=== PATIENT | female | born 1995 | race Caucasian/White ===

== ENCOUNTER → 2020-11-13 10:37 | Outpatient (CLI) | payer OTHER, SELFPAY ==
[2020-11-13 10:07] VITALS: BMI 23.9
[2020-11-13 10:49] LABS: Absolute Lymphocyte Count 2.03 X10^3/uL (0.83-4.51); Absolute Neutrophil Count 4.3 X10^3/uL (2.0-7.7); Basophil# 0.06 X10^3/uL; Basophil% 0.8 % (0-1); Eosinophil# 0.11 X10^3/uL; Eosinophils% 1.6 % (0-5); Hematocrit 43.4 % (37-47); Hemoglobin 14.6 g/dL (12.0-15.0); Lymphocyte # 2.03 X10^3/ul (0.83-4.51); Lymphocyte % 28.7 % (19-41); Mean Corp Hgb Conc 33.6 g/dL (32-36); Mean Corpuscular Volume 92.1 fL (81-99); Mean Platelet Vol. 10.6 fl (6.2-12.0); Monocyte# 0.57 X10^3/uL; Monocyte% 8.1 % (0-10); NRBC Flagged by Analyzer 0 % (0-5); Neutrophil # 4.28 X10^3/uL (2.7-7.7); Neutrophil % 60.4 % (47-70); Platelet Count 196 K/mm3 (150-450); RBC Distribution Width CV 12.3 % (11.6-14.6); RBC Distribution Width SD 41.8 fl (35.1-43.9); Red Blood Count 4.71 M/mm3 (4.2-5.4); White Blood Count 7.1 K/mm3 (4.4-11.0)
[2020-11-13 11:22] LABS: Thyroid Stim Hormone (TSH) 1.18 uIU/mL (0.358-3.74)
[2020-11-17 07:06] LABS: Chlamydia By Nucleic Acid AMP Negative (Negative)
[2020-11-17 07:50] LABS: Gonococcus By Nucleic Acid AMP Negative (Negative)
[2020-11-18 12:39] LABS: HPV Reflexed? NOT INDICATED
== END ==
PROVIDERS: PCP Internal Medicine; Referring Provider Nurse Practitioner Women's Health; Visit Provider Nurse Practitioner Women's Health
DX: Z12.4 Encounter for screening for malignant neoplasm of cervix (principal); R53.83 Other fatigue; Z11.3 Encounter for screening for infections with a predominantly sexual mode of transmission; Z13.29 Encounter for screening for other suspected endocrine disorder
CPT/HCPCS: 36415; 84443; 85025; 87491; 87591; 88175; G0145

== ENCOUNTER → 2022-01-12 | Outpatient (CLI) | payer OTHER, SELFPAY ==
[2022-01-12 14:37] LABS: Absolute Lymphocyte Count 1.71 X10^3/uL (0.83-4.51); Absolute Neutrophil Count 4.8 X10^3/uL (2.0-7.7); Basophil# 0.07 X10^3/uL; Eosinophils% 1.4 % (0-5); Hematocrit 39.8 % (37-47); Hemoglobin 13.9 g/dL (12.0-15.0); Lymphocyte # 1.71 X10^3/ul (0.83-4.51); Lymphocyte % 23.8 % (19-41); Mean Corp Hgb Conc 34.9 g/dL (32-36); Mean Corpuscular Hgb 31.4 pg (27.0-32.0); Mean Platelet Vol. 11.5 fl (6.2-12.0); Monocyte% 6.9 % (0-10); NRBC Flagged by Analyzer 0 % (0-5); Neutrophil # 4.81 X10^3/uL (2.7-7.7); Neutrophil % 66.8 % (47-70); Platelet Count 165 K/mm3 (150-450); RBC Distribution Width CV 11.6 % (11.6-14.6); RBC Distribution Width SD 38.5 fl (35.1-43.9); Red Blood Count 4.42 M/mm3 (4.2-5.4); White Blood Count 7.2 K/mm3 (4.4-11.0)
[2022-01-12 14:51] LABS: Hemoglobin A1c 5.1 % (3.8-5.6)
[2022-01-12 15:21] LABS: Vitamin D,25 Hydroxy 48.5 ng/mL
[2022-01-12 15:31] LABS: Thyroid Stim Hormone (TSH) 1.27 uIU/mL (0.358-3.74)
== END | disposition home or self-care (01) ==
PROVIDERS: PCP Internal Medicine; Referring Provider Nurse Practitioner Women's Health; Visit Provider Nurse Practitioner Women's Health
DX: R53.83 Other fatigue (principal); R42 Dizziness and giddiness; Z13.21 Encounter for screening for nutritional disorder
CPT/HCPCS: 36415; 82306; 83036; 84443; 85025

== ENCOUNTER → 2022-05-13 | Outpatient (CLI) | payer OTHER, SELFPAY ==
--- NOTE | 2022-05-13 14:56 | US_ITS ---
STUDY: ULTRASOUND OF THE FEMALE PELVIS - COMPLETE REASON FOR EXAM: Female, 26 years old. Pelvic pain -right side LMP: 05/03/2020 TECHNIQUE: Transabdominal and Transvaginal TECHNICAL QUALITY: Adequate. COMPARISON: None. FINDINGS: The uterus is anteverted and is in a midline position. The uterus measures 9.9 x 6.7 x 4.2 cm. Normal uterine cervix. The endometrium measures 9 mm in thickness, and is heterogeneous (striated). There is no demonstrated endometrial mass. There is no demonstrated myometrial mass. I.U.D. - The patient does not have an I.U.D. The right ovary is visualized. The right ovary measures 3.2 x 3.2 x 2.3 cm. There is a simple 2.3 cm cyst.. There is normal arterial and normal venous vascularity. The left ovary is visualized. The left ovary measures 2.1 x 1.7 x 2.2 cm. There is no left ovarian cyst or ovarian mass. There is no visualized left adnexal mass or complex lesion. There is normal arterial and normal venous vascularity. There is minimal fluid in the cul-de-sac, likely physiologic. The pre void volume of the bladder was 106 ml. The post void volume of the bladder was less than 10 ml. US/Transvaginal Non- IMPRESSION: No suspicious sonographic findings, simple right ovarian cyst and minimal free fluid in the cul-de-sac are likely physiologic and need no specific follow-up. Electronically Signed: Pravin Gillespie MD at 15:51 EDT ,
--- NOTE | 2022-05-13 14:56 | US_ITS ---
STUDY: ULTRASOUND OF THE FEMALE PELVIS - COMPLETE REASON FOR EXAM: Female, 26 years old. Pelvic pain -right side LMP: 05/03/2020 TECHNIQUE: Transabdominal and Transvaginal TECHNICAL QUALITY: Adequate. COMPARISON: None. FINDINGS: The uterus is anteverted and is in a midline position. The uterus measures 9.9 x 6.7 x 4.2 cm. Normal uterine cervix. The endometrium measures 9 mm in thickness, and is heterogeneous (striated). There is no demonstrated endometrial mass. There is no demonstrated myometrial mass. I.U.D. - The patient does not have an I.U.D. The right ovary is visualized. The right ovary measures 3.2 x 3.2 x 2.3 cm. There is a simple 2.3 cm cyst.. There is normal arterial and normal venous vascularity. The left ovary is visualized. The left ovary measures 2.1 x 1.7 x 2.2 cm. There is no left ovarian cyst or ovarian mass. There is no visualized left adnexal mass or complex lesion. There is normal arterial and normal venous vascularity. There is minimal fluid in the cul-de-sac, likely physiologic. The pre void volume of the bladder was 106 ml. The post void volume of the bladder was less than 10 ml. US/Pelvic (Non ) IMPRESSION: No suspicious sonographic findings, simple right ovarian cyst and minimal free fluid in the cul-de-sac are likely physiologic and need no specific follow-up. Electronically Signed: Pravin Gillespie MD at 15:51 EDT ,
== END | disposition home or self-care (01) ==
LOC: US 14:54
PROVIDERS: Referring Provider Obstetrics & Gynecology; Visit Provider Obstetrics & Gynecology
DX: R10.2 Pelvic and perineal pain (principal)
CPT/HCPCS: 76830; 76856; 93976

== ENCOUNTER → 2022-05-28 | Outpatient (CLI) | payer OTHER, SELFPAY ==
[2022-06-04 15:19] LABS: HPV Reflexed? NOT INDICATED
== END | disposition home or self-care (01) ==
LOC: LABSPEC 16:31
PROVIDERS: Visit Provider Registered Nurse
DX: Z12.4 Encounter for screening for malignant neoplasm of cervix (principal)
CPT/HCPCS: 88175; G0145

== ENCOUNTER → 2022-10-26 | Outpatient (CLI) | payer OTHER, SELFPAY ==
[2022-10-26 16:10] LABS: Absolute Lymphocyte Count 1.63 X10^3/uL (0.83-4.51); Absolute Neutrophil Count 5.3 X10^3/uL (2.0-7.7); Basophil# 0.05 X10^3/uL; Basophil% 0.7 % (0-1); Eosinophil# 0.09 X10^3/uL; Eosinophils% 1.2 % (0-5); Hematocrit 35.8 % (37-47); Hemoglobin 12.6 g/dL (12.0-15.0); Lymphocyte # 1.63 X10^3/ul (0.83-4.51); Lymphocyte % 21.3 % (19-41); Mean Corp Hgb Conc 35.2 g/dL (32-36); Mean Corpuscular Hgb 31.4 pg (27.0-32.0); Mean Corpuscular Volume 89.3 fL (81-99); Mean Platelet Vol. 11.1 fl (6.2-12.0); Monocyte# 0.52 X10^3/uL; Monocyte% 6.8 % (0-10); NRBC Flagged by Analyzer 0 % (0-5); Neutrophil # 5.34 X10^3/uL (2.7-7.7); Neutrophil % 69.9 % (47-70); Platelet Count 175 K/mm3 (150-450); RBC Distribution Width CV 12.3 % (11.6-14.6); RBC Distribution Width SD 40.7 fl (35.1-43.9); Red Blood Count 4.01 M/mm3 (4.2-5.4); White Blood Count 7.6 K/mm3 (4.4-11.0)
[2022-10-26 16:56] LABS: ALB/GLOB Ratio 1.3 RATIO (0.9-2.4); AST(SGOT) 13 U/L (15-37); Alanine Aminotransfer ALT/SGPT 20 U/L (13-56); Alkaline Phosphatase 44 U/L (45-117); Anion Gap 7 (5-15); BUN 11 mg/dL (7-18); BUN/Creat Ratio 19.9 RATIO (10-20); Chloride 108 mmol/L (98-107); Creatinine, Serum 0.55 mg/dL (0.55-1.02); EST Glomerular Filtration Rate 138 mL/min (>60); Est Glom Filt Rate - Afr Amer 167 mL/min (>60); Glucose 88 mg/dL (74-106); Potassium 3.5 mmol/L (3.5-5.1); Sodium Level 137 mmol/L (136-145)
[2022-10-26 17:53] LABS: HIV - WCH Non-Reactive (Nonreactive); Hepatitis B Surface Antigen Non-Reactive (Nonreactive); Hepatitis C Antibody Non-Reactive (Nonreactive); Rubella IgG Reactive (Nonreactive); Syphilis Antibodies Non-reactive
[2022-10-28 16:09] LABS: Endomysial Antibody IgA Negative (Negative)
[2022-10-28 17:02] LABS: Deamidated Gliadin IgA 3 units (0-19); Deamidated Gliadin IgG 4 units (0-19); Immunoglobulin A 51 mg/dL (87-352); t-Transglutaminase IgA <2 U/mL (0-3)
[2022-10-28 22:06] LABS: Chlamydia By Nucleic Acid AMP Negative (Negative)
[2022-10-29 15:19] LABS: Gonococcus By Nucleic Acid AMP Negative (Negative)
[2022-10-31 12:07] LABS: Beef <0.10 kU/L (Class 0); Corn <0.10 kU/L (Class 0); Egg, Whole <0.10 kU/L (Class 0); Milk (Cow) <0.10 kU/L (Class 0); Peanut <0.10 kU/L (Class 0); Pork <0.10 kU/L (Class 0); Soybean <0.10 kU/L (Class 0); Wheat <0.10 kU/L (Class 0)
[2022-11-01 11:11] LABS: Chocolate <0.10 kU/L (Class 0)
== END | disposition home or self-care (01) ==
PROVIDERS: Family Medicine; Referring Provider Obstetrics & Gynecology; Visit Provider Obstetrics & Gynecology
DX: Z34.90 Encounter for supervision of normal pregnancy, unspecified, unspecified trimester (principal); Z91.018 Allergy to other foods
CPT/HCPCS: 36415; 80053; 82784; 83516; 85025; 86003; 86005; 86255; 86703; 86762; 86780; 86803; 86850; 86900; 86901; 87086; 87340; 87491; 87591

== ENCOUNTER → 2023-01-04 | Outpatient (CLI) | payer OTHER, SELFPAY ==
--- NOTE | 2023-01-04 15:51 | US_ITS ---
INDICATION: ANATOMY EXAMINATION: Ultrasound US OB complete with detail single or first gestation. Ultrasound OB transvaginal TECHNIQUE: Transabdominal pelvic ultrasound was performed with grayscale, color flow, and M-mode Doppler. Additional transvaginal grayscale and color flow imaging of the cervix and bilateral maternal adnexa.. COMPARISON: May 13, 2022. LMP: August 23, 2022 correlating with 19 weeks 1 day and estimated delivery date May 30, 2023. FINDINGS: Gravid uterus with unremarkable myometrium. Variable position. heart rate 144 bpm. Cervix partially obscured on transabdominal exam, 4.3 cm in length and closed on transvaginal exam. Subjectively normal amniotic fluid. Deepest vertical pocket 3.1 cm. Placenta posterior, grade 0 without evidence of abruption. Inferior marginal placenta 3.1 cm from the internal os. Normal cerebellum, cisterna magnum and lateral ventricles. 2.7 mm solitary choroid plexus. Four-chamber heart. Normal abdominal and placental cord insertion. Kidneys present without pelviectasis. Normal spine and skin line. Filled stomach. Diaphragm appears intact. 2 lower extremities. 2 upper extremities. Filled bladder. Three-vessel cord. Limited nose and lips images with no abnormality along imaged portion. MATERNAL OVARIES: Obscured by bowel gas on transabdominal and endovaginal exam. FREE FLUID: Trace anechoic dependent cul-de-sac free fluid. Biparietal diameter 4.1 cm 18 weeks 3 days Head circumference 17.0 cm 19 weeks 4 days Abdominal circumference 14.8 cm 20 weeks 0 days Femur length 2.7 cm 18 weeks 1 day Composite ultrasound age 19 weeks 0 days correlating with May 31, 2023 delivery date. Estimated weight 276g + or minus 41g. This is 44th percentile compared to prior dating. Normal head circumference abdominal circumference ratio. IMPRESSION: Single live intrauterine with normal heart rate. Estimated gestational age by biometry is concordant with provided dating. 2.7 mm solitary choroid plexus cyst. This is of unknown clinical significance as an isolated finding is typically self-limiting. There is a soft association with aneuploidy. OB follow-up is recommended. Consider repeat ultrasound at 28 weeks gestation. Cervix long and closed. Unremarkable placenta. Trace nonspecific anechoic cul-de-sac free fluid. Maternal ovaries are obscured by bowel gas Electronically Signed: Kam Thorpe MD at 8:45 EDT , INDICATION: ANATOMY EXAMINATION: Ultrasound US OB complete with detail single or first gestation. Ultrasound OB transvaginal TECHNIQUE: Transabdominal pelvic ultrasound was performed with grayscale, color flow, and M-mode Doppler. Additional transvaginal grayscale and color flow imaging of the cervix and bilateral maternal adnexa.. COMPARISON: May 13, 2022. LMP: August 23, 2022 correlating with 19 weeks 1 day and estimated delivery date May 30, 2023. FINDINGS: Gravid uterus with unremarkable myometrium. Variable position. heart rate 144 bpm. Cervix partially obscured on transabdominal exam, 4.3 cm in length and closed on transvaginal exam. Subjectively normal amniotic fluid. Deepest vertical pocket 3.1 cm. Placenta posterior, grade 0 without evidence of abruption. Inferior marginal placenta 3.1 cm from the internal os. Normal cerebellum, cisterna magnum and lateral ventricles. 2.7 mm solitary choroid plexus. Four-chamber heart. Normal abdominal and placental cord insertion. Kidneys present without pelviectasis. Normal spine and skin line. Filled stomach. Diaphragm appears intact. 2 lower extremities. 2 upper extremities. Filled bladder. Three-vessel cord. Limited nose and lips images with no abnormality along imaged portion. MATERNAL OVARIES: Obscured by bowel gas on transabdominal and endovaginal exam. FREE FLUID: Trace anechoic dependent cul-de-sac free fluid. Biparietal diameter 4.1 cm 18 weeks 3 days Head circumference 17.0 cm 19 weeks 4 days Abdominal circumference 14.8 cm 20 weeks 0 days Femur length 2.7 cm 18 weeks 1 day Composite ultrasound age 19 weeks 0 days correlating with May 31, 2023 delivery date. Estimated weight 276g + or minus 41g. This is 44th percentile compared to prior dating. Normal head circumference abdominal circumference ratio. US/OB Anatomy Scan
== END | disposition home or self-care (01) ==
LOC: OPUS 15:51 → US 15:52
PROVIDERS: PCP Family Medicine; Referring Provider Registered Nurse; Visit Provider Registered Nurse
DX: Z34.90 Encounter for supervision of normal pregnancy, unspecified, unspecified trimester (principal)
CPT/HCPCS: 76805; 76817

== ENCOUNTER → 2023-01-18 | Outpatient (CLI) | payer OTHER, SELFPAY ==
[2023-01-18 15:54] LABS: NATERA MAILED SPECIMEN
== END | disposition home or self-care (01) ==
LOC: PAVLAB 14:47
PROVIDERS: PCP Family Medicine; Referring Provider Advanced Practice Midwife; Visit Provider Advanced Practice Midwife
DX: Z00.00 Encounter for general adult medical examination without abnormal findings (principal)

== ENCOUNTER → 2023-03-07 | Outpatient (CLI) | payer OTHER, SELFPAY ==
[2023-03-07 13:23] LABS: Absolute Lymphocyte Count 1.33 X10^3/uL (0.83-4.51); Absolute Neutrophil Count 6.7 X10^3/uL (2.0-7.7); Basophil# 0.05 X10^3/uL; Basophil% 0.6 % (0-1); Eosinophil# 0.08 X10^3/uL; Eosinophils% 0.9 % (0-5); Hematocrit 36.3 % (37-47); Hemoglobin 12.4 g/dL (12.0-15.0); Lymphocyte # 1.33 X10^3/ul (0.83-4.51); Lymphocyte % 15.1 % (19-41); Mean Corp Hgb Conc 34.2 g/dL (32-36); Mean Corpuscular Hgb 32.3 pg (27.0-32.0); Mean Corpuscular Volume 94.5 fL (81-99); Mean Platelet Vol. 10.9 fl (6.2-12.0); Monocyte# 0.58 X10^3/uL; Monocyte% 6.6 % (0-10); NRBC Flagged by Analyzer 0 % (0-5); Neutrophil # 6.69 X10^3/uL (2.7-7.7); Neutrophil % 76.1 % (47-70); Platelet Count 164 K/mm3 (150-450); RBC Distribution Width CV 12.2 % (11.6-14.6); RBC Distribution Width SD 42.2 fl (35.1-43.9); Red Blood Count 3.84 M/mm3 (4.2-5.4); White Blood Count 8.8 K/mm3 (4.4-11.0)
[2023-03-07 13:47] LABS: Glucose Challenge Gest 1H 50g 89 mg/dL (70-140)
[2023-03-07 14:20] LABS: HIV - WCH Non-Reactive (Nonreactive); Syphilis Antibodies Non-reactive
== END | disposition home or self-care (01) ==
LOC: PAVLAB 13:07
PROVIDERS: PCP Family Medicine; Referring Provider Advanced Practice Midwife; Visit Provider Advanced Practice Midwife
DX: Z34.90 Encounter for supervision of normal pregnancy, unspecified, unspecified trimester (principal)
CPT/HCPCS: 36415; 82950; 85025; 86703; 86780

== ENCOUNTER → 2023-05-03 | Outpatient (CLI) | payer OTHER, SELFPAY | END | disposition home or self-care (01) | LOC: LABSPEC 12:15 | PROVIDERS: PCP Family Medicine; Referring Provider Obstetrics & Gynecology; Visit Provider Obstetrics & Gynecology | DX: Z34.90 Encounter for supervision of normal pregnancy, unspecified, unspecified trimester (principal) | CPT/HCPCS: 87081 ==

== ENCOUNTER 2023-05-30 19:40 | Inpatient (IN) | payer OTHER, SELFPAY ==
[2023-05-30] VITALS (50 sets, daily range): BP systolic 89–144; BP diastolic 50–75; PULSE 61–95; TEMP 36.4–36.9; O2SAT 77–100; BMI 29.0
[2023-05-30 20:13] LABS: Absolute Lymphocyte Count 1.43 X10^3/uL (0.83-4.51); Absolute Neutrophil Count 15.4 X10^3/uL (2.0-7.7); Basophil# 0.07 X10^3/uL; Basophil% 0.4 % (0-1); Eosinophil# 0.01 X10^3/uL; Eosinophils% 0.1 % (0-5); Hematocrit 39.3 % (37-47); Hemoglobin 13.6 g/dL (12.0-15.0); Lymphocyte # 1.43 X10^3/ul (0.83-4.51); Mean Corp Hgb Conc 34.6 g/dL (32-36); Mean Corpuscular Hgb 31.4 pg (27.0-32.0); Mean Corpuscular Volume 90.8 fL (81-99); Mean Platelet Vol. 12.2 fl (6.2-12.0); Monocyte# 0.94 X10^3/uL; Monocyte% 5.2 % (0-10); NRBC Flagged by Analyzer 0 % (0-5); Neutrophil # 15.35 X10^3/uL (2.7-7.7); Neutrophil % 85.6 % (47-70); Platelet Count 178 K/mm3 (150-450); RBC Distribution Width CV 12.5 % (11.6-14.6); Red Blood Count 4.33 M/mm3 (4.2-5.4); White Blood Count 17.9 K/mm3 (4.4-11.0)
[2023-05-30 20:52] LABS: Syphilis Antibodies Non-reactive
[2023-05-30] MEDS: LACTATED RINGERS 500 ML 999 ML IV ×2 (20:55→21:58)
[2023-05-30] MEDS: Lactated Ringers 1,000 ML 200 ML IV (20:58)
[2023-05-30] MEDS: fentaNYL-bupivacaine (epidural) 100 ML BAG EPIDURAL (21:21)
--- NOTE | 2023-05-30 22:39 | HP.PCM.OB_ITS ---
HPI - General General Date of Admission: 05/30/23 Date of Service: 05/30/23 HPI Narrative TREVOR JOHNSON, is a 27 F who presents with LOF since around 0930 this morning, clear fluids. contractions started spontaneously. no vaginal bleeding. active fetus. GBS negative. Maternal Data Information RABIA Calculator Estimated Delivery Date Method Current WG Current Estimate 05/30/23 LMP (Certain) 40w 0d Other Estimates 05/31/23 Ultrasound #1 39w 6d PFSH PFSH Medical History Dysmenorrhea Fatigue Pelvic pain Sinus infection Home Medications docosahexaenoic acid 200 mg capsule ( DHA) mg PO 01/12/22 [History Last Taken 05/30/23] Allergy/AdvReac Type Severity Reaction Status Date / Time No Known Allergies Allergy Verified 05/30/23 21:50 Family History Aunt MTHFR gene mutation Grandfather Cancer Uncle Heart disease VSD repaired at 6months, revision at 18 years intellectual disability Unknown Heart disease tricuspid valve dysplasia Surgical History S/P tonsillectomy and adenoidectomy [place] teeth extracted Social History adopted: No household members: significant other housing: house current occupational status: employed current occupation: [employer] pets and animals: Yes pets and animals: cat(s) and dog(s) history of recent travel: Yes sexually active: Yes Smoking Status: Never smoker alcohol intake: never substance use type: does not use well-balanced diet: daily or most days caffeine: No seatbelt use: always do you feel safe at home: Yes additional social history: [place] History 1 Elective abortions Hx Para 0 Spontaneous abortions Hx # Term Pregnancies Ectopic pregnancies Hx # Pregnancies Multiple births # of living children Visit Details Expected Delivery Route/Plan Labor Preferences- CB/BF classes: discussed labor support person: Farhat labor intervention preferences: min intervention pain management options preferred:natural cut cord/dad catch: yes maybe : plans PP control planned: [] discussed possible routes of delivery and associated risks: [] special requests: [] Plans Covid status: discussed Flu vaccine:discussed Tdap vaccine: given Rhogam: na LARC form signed: declined movement and labor precautions reviewed. Problem list reviewed and updated with the most current plan of care details and appropriate orders placed. Relevant counseling for the gestational age provided. Continue routine care and follow up unless otherwise noted in visit notes/problem list details OB Flowsheet Initial Weight: Not Recorded Date -?-?-?-?-?-?-?-?-?-?-?-?- EGA Weight BP Urine Prot -?-?-?-?-?-?-?-?-?-?-?-?- Glucose FHR FuHt Pres Dilation -?-?-?-?-?-?-?-?-?-?-?-?- Effaced St Visit Note 10/26/22 -?-?-?-?-?-?-?-?-?-?-?-?- 9w 1d 138 lb 8 oz 120/74 -?-?-?-?-?-?-?-?-?-?-?-?- 160 -?-?-?-?-?-?-?-?-?-?-?-?- SM- CRL 2cm cons with LMP 11/22/22 -?-?-?-?-?-?-?-?-?-?-?-?- 13w 0d 142 lb 2 oz 102/72 Nega tive -?-?-?-?-?-?-?--?-?-?-?-?- Negative 144 -?-?-?-?-?-?-?-?-?-?-?-?- LC- no cramping/ vb. cardiac defects in family, would like to declines nipt. ultrasound ordered. open to echo if needed. 12/22/22 -?-?-?-?-?-?-?-?-?-?-?-?- 17w 2d 146 lb 6 oz 115/73 Nega tive -?-?-?-?-?-?-?-?-?-?-?-?- Negative 147 -?-?-?-?-?-?-?-?-?-?--?-?- JV- no complaint s today. has [facility] ultrasound scheduled for 01/0401/18/23 -?-?-?-?-?-?-?-?-?-?-?-?- 21w 1d 153 lb 4 oz 100/67 Nega tive -?-?-?--?-?-?-?-?-?-?-?-?- Negative 145 22 -?-?-?-?-?-?-?-?-?-?-?-?- KW-+FM, no lof/v b/ctx. NIPT today. plans 28 week US. 28 week labs with Fresh test 02/15/23 -?-?-?-?-?-?-?-?-?-?-?-?- 25w 1d 159 lb 2 oz 105/69 Nega tive -?-?-?-?-?-?-?-?-?-?-?-?- Negative 135 25 -?-?-?-?-?-?-?-?-?-?-?-?- KW-+fm. no lof/v b/ctx. no concerns KW-+fm. no lof/vb/ctx. no co ncerns. NIPT low risk. declines 28 week US 03/07/23 -?-?-?-?-?-?-?-?-?-?-?-?- 28w 0d 164 lb 6 oz 105/70 -?-?-?-?-?-?-?-?-?-?-?-?- 150 28 -?-?-?-?-?-?-?-?-?-?-?-?- KW-+fm. no lof/v b/ctx. no concerns. 03/21/23 -?-?-?-?-?-?-?-?-?-?-?-?- 30w 0d 168 lb 2 oz 116/76 Nega tive -?-?-?-?-?-?-?-?-?-?-?-?- Negative 140 30 -?-?-?-?-?-?-?-?-?-?-?-?- LC- no lof/vb/ct x. passed glucose. LC- no lof/vb/ctx. passed gl ucose.CBE discussed. 04/06/23 -?-?-?-?-?-?-?-?-?-?-?-?- 32w 2d 173 lb 6 oz 102/67 -?-?-?-?-?-?-?-?-?-?-?-?- 137 32 -?-?-?-?-?-?-?-?-?-?-?-?- JV- larc signed, willl decide about tdap. no lof, vaginal bleeding, or dec fm, no contractions 04/18/23 -?-?-?-?-?-?-?-?-?-?-?-?- 34w 0d 173 lb 6 oz 105/67 Nega tive -?-?-?-?-?-?-?-?-?-?-?-?- Negative 125 34 [place] -?-?-?-?-?-?-?-?-?-?-?-?- SM- no vb lof go od fm n oregular ctx discussed breech presentation 05/03/23 -?-?-?-?-?-?-?-?-?-?-?-?- 36w 1d 180 lb 110/70 -?-?-?-?-?-?-?-?-?-?-?-?- 140 36 Cephalic 0 -?-?-?-?-?-?-?-?-?-?-?-?- SM- scanned [facility] no vb lof good fm n oreuglar ctx gbs done 05/09/23 -?-?-?-?-?-?-?-?-?-?-?-?- 37w 0d 182 lb 114/70 Negative -?-?-?-?-?-?-?-?-?-?-?--?- Negative 140 37 Cephalic -?-?-?-?-?-?-?-?-?-?-?-?- SM- no vb lof go od fm no regular ctx 05/18/23 -?-?-?-?-?-?-?-?-?-?-?-?- 38w 2d 180 lb 4 oz 116/76 Nega tive -?-?-?-?-?-?-?-?-?-?-?-?- Negative 145 38 Cephalic -?-?-?-?-?-?-?-?-?-?-?-?- JV- declines PE, no lof, vaginal bleeding, or dec fm. 05/24/23 -?-?-?-?-?-?-?-?-?-?-?-?- 39w 1d 183 lb 6 oz 120/75 Nega tive -?-?-?-?-?-?-?-?-?-?-?-?- Negative 125 39 Cephalic 0 .5 -?-?-?-?-?-?-?-?-?-?-?-?- KW-no vb/lof/reg ular ctx. good fm. labor precautions NST FHR Rate Baby A Baseline: 120 Variability:: Moderate Accelerations:: 15 x 15 Decelerations:: Variable NST Reactive:: Yes FHR Category:: Category I and Category II (resolved to cat 1 tracing with position changes and fluid bolus after epidural placement. ) Uterine Activity:: q3-4
--- NOTE | 2023-05-30 22:39 | PCM.HP.OB ---
HPI - General General Date of Admission: 05/30/23 Date of Service: 05/30/23 HPI Narrative TREVOR JOHNSON, is a 27 F who presents with LOF since around 0930 this morning, clear fluids. contractions started spontaneously. no vaginal bleeding. active fetus. GBS negative. Maternal Data Information RABIA Calculator Estimated Delivery Date Method Current WG Current Estimate 05/30/23 LMP (Certain) 40w 0d Other Estimates 05/31/23 Ultrasound #1 39w 6d PFSH PFSH Medical History Dysmenorrhea Fatigue Pelvic pain Sinus infection Home Medications docosahexaenoic acid 200 mg capsule ( DHA) mg PO 01/12/22 [History Last Taken 05/30/23] Allergy/AdvReac Type Severity Reaction Status Date / Time No Known Allergies Allergy Verified 05/30/23 21:50 Family History Aunt MTHFR gene mutation Grandfather Cancer Uncle Heart disease VSD repaired at 6months, revision at 18 years intellectual disability Unknown Heart disease tricuspid valve dysplasia Surgical History S/P tonsillectomy and adenoidectomy [place] teeth extracted Social History adopted: No household members: significant other housing: house current occupational status: employed current occupation: [employer] pets and animals: Yes pets and animals: cat(s) and dog(s) history of recent travel: Yes sexually active: Yes Smoking Status: Never smoker alcohol intake: never substance use type: does not use well-balanced diet: daily or most days caffeine: No seatbelt use: always do you feel safe at home: Yes additional social history: [place] History 1 Elective abortions Hx Para 0 Spontaneous abortions Hx # Term Pregnancies Ectopic pregnancies Hx # Pregnancies Multiple births # of living children Visit Details Expected Delivery Route/Plan Labor Preferences- CB/BF classes: discussed labor support person: Farhat labor intervention preferences: min intervention pain management options preferred:natural cut cord/dad catch: yes maybe : plans PP control planned: [] discussed possible routes of delivery and associated risks: [] special requests: [] Plans Covid status: discussed Flu vaccine:discussed Tdap vaccine: given Rhogam: na LARC form signed: declined movement and labor precautions reviewed. Problem list reviewed and updated with the most current plan of care details and appropriate orders placed. Relevant counseling for the gestational age provided. Continue routine care and follow up unless otherwise noted in visit notes/problem list details OB Flowsheet Initial Weight: Not Recorded Date <del>?</del> EGA Weight BP Urine Prot <del>?</del> Glucose FHR FuHt Pres Dilation <del>?</del> Effaced St Visit Note 10/26/22 <del>?</del> 9w 1d 138 lb 8 oz 120/74 <del>?</del> 160 <del>?</del> SM- CRL 2cm cons with LMP 11/22/22 <del>?</del> 13w 0d 142 lb 2 oz 102/72 Negative <del>?</del> Negative 144 <del>?</del> LC- no cramping/vb. cardiac defects in family, would like to declines nipt. ultrasound ordered. open to echo if needed. 12/22/22 <del>?</del> 17w 2d 146 lb 6 oz 115/73 Negative <del>?</del> Negative 147 <del>?</del> JV- no complaints today. has [facility] ultrasound scheduled for 01/0401/18/23 <del>?</del> 21w 1d 153 lb 4 oz 100/67 Negative <del>?</del> Negative 145 22 <del>?</del> KW-+FM, no lof/vb/ctx. NIPT today. plans 28 week US. 28 week labs with Fresh test 02/15/23 <del>?</del> 25w 1d 159 lb 2 oz 105/69 Negative <del>?</del> Negative 135 25 <del>?</del> KW-+fm. no lof/vb/ctx. no concerns KW-+fm. no lof/vb/ctx. no concerns. NIPT low risk. declines 28 week US 03/07/23 <del>?</del> 28w 0d 164 lb 6 oz 105/70 <del>?</del> 150 28 <del>?</del> KW-+fm. no lof/vb/ctx. no concerns. 03/21/23 <del>?</del> 30w 0d 168 lb 2 oz 116/76 Negative <del>?</del> Negative 140 30 <del>?</del> LC- no lof/vb/ctx. passed glucose. LC- no lof/vb/ctx. passed glucose.CBE discussed. 04/06/23 <del>?</del> 32w 2d 173 lb 6 oz 102/67 <del>?</del> 137 32 <del>?</del> JV- larc signed, willl decide about tdap. no lof, vaginal bleeding, or dec fm, no contractions 04/18/23 <del>?</del> 34w 0d 173 lb 6 oz 105/67 Negative <del>?</del> Negative 125 34 Breech <del>?</del> SM- no vb lof good fm n oregular ctx discussed breech presentation 05/03/23 <del>?</del> 36w 1d 180 lb 110/70 <del>?</del> 140 36 Cephalic 0 <del>?</del> SM- scanned at bedside no vb lof good fm n oreuglar ctx gbs done 05/09/23 <del>?</del> 37w 0d 182 lb 114/70 Negative <del>?</del> Negative 140 37 Cephalic <del>?</del> SM- no vb lof good fm no regular ctx 05/18/23 <del>?</del> 38w 2d 180 lb 4 oz 116/76 Negative <del>?</del> Negative 145 38 Cephalic <del>?</del> JV- declines PE, no lof, vaginal bleeding, or dec fm. 05/24/23 <del>?</del> 39w 1d 183 lb 6 oz 120/75 Negative <del>?</del> Negative 125 39 Cephalic 0.5 <del>?</del> KW-no vb/lof/regular ctx. good fm. labor precautions NST FHR Rate Baby A Baseline: 120 Variability:: Moderate Accelerations:: 15 x 15 Decelerations:: Variable NST Reactive:: Yes FHR Category:: Category I and Category II (resolved to cat 1 tracing with position changes and fluid bolus after epidural placement. ) Uterine Activity:: q3-4 ROS Cardiovascular Cardiovascular: Denies abdominal pain, chest pain, diaphoresis or dyspnea Respiratory/Chest Respiratory/Chest: Denies change in mental status, chest congestion, chest tightness, cough, shortness of breath at rest, shortness of breath with exertion, breast mass, breast pain, breast skin changes, breast swelling, change in breast shape or nipple discharge Genitourinary Genitourinary: Reports change in urinary stream Musculoskeletal Musculoskeletal: Reports none Integumentary Integumentary: Reports none Neurologic Neurologic: Reports none Psychiatric Psychiatric: Reports none Endocrine Endocrinology: Reports none Hematologic/Lymphatic Hematologic/Lymphatic: Reports none Allergic/Immunologic Allergic/Immunologic: Reports none Vital Signs Vital Signs Vital Signs: 05/30/23 19:58 05/30/23 19:58 05/30/23 20:00 Temperature Temperature Source Pulse Rate 76 Blood Pressure 123/71 H BP Systolic 123 BP Diastolic 71 Pulse Ox 99 05/30/23 20:03 05/30/23 20:03 05/30/23 21:10 Temperature 98.2 F Temperature Source Temporal Pulse Rate 86 Blood Pressure BP Systolic BP Diastolic Pulse Ox 05/30/23 21:10 05/30/23 21:15 05/30/23 21:15 Temperature Temperature Source Pulse Rate 85 Blood Pressure BP Systolic BP Diastolic Pulse Ox 99 98 05/30/23 21:15 05/30/23 21:15 05/30/23 21:15 Temperature Temperature Source Pulse Rate 76 Blood Pressure 109/65 BP Systolic 109 BP Diastolic 65 Pulse Ox 94 05/30/23 21:20 05/30/23 21:20 05/30/23 21:21 Temperature Temperature Source Pulse Rate 87 Blood Pressure 125/66 H BP Systolic 125 BP Diastolic 66 Pulse Ox 97 05/30/23 21:21 05/30/23 21:23 05/30/23 21:23 Temperature 98.5 F Temperature Source Temporal Pulse Rate 81 Blood Pressure BP Systolic BP Diastolic Pulse Ox 05/30/23 21:25 05/30/23 21:25 05/30/23 21:29 Temperature Temperature Source Pulse Rate 81 Blood Pressure 125/68 H BP Systolic 125 BP Diastolic 68 Pulse Ox 99 05/30/23 21:30 05/30/23 21:30 05/30/23 21:35 Temperature Temperature Source Pulse Rate 82 76 Blood Pressure BP Systolic BP Diastolic Pulse Ox 99 05/30/23 21:35 05/30/23 21:37 05/30/23 21:37 Temperature Temperature Source Pulse Rate 75 Blood Pressure 108/57 L BP Systolic 108 BP Diastolic 57 Pulse Ox 98 05/30/23 21:40 05/30/23 21:40 05/30/23 21:40 Temperature Temperature Source Pulse Rate 72 Blood Pressure 106/57 L BP Systolic 106 BP Diastolic 57 Pulse Ox 97 05/30/23 21:45 05/30/23 21:45 05/30/23 21:46 Temperature Temperature Source Pulse Rate 77 Blood Pressure 107/56 L BP Systolic 107 BP Diastolic 56 Pulse Ox 97 05/30/23 21:46 05/30/23 21:50 05/30/23 21:50 Temperature Temperature Source Pulse Rate 72 83 Blood Pressure BP Systolic BP Diastolic Pulse Ox 97 05/30/23 21:52 05/30/23 21:52 05/30/23 21:55 Temperature Temperature Source Pulse Rate 74 80 Blood Pressure 127/67 H BP Systolic 127 BP Diastolic 67 Pulse Ox 05/30/23 21:55 05/30/23 21:57 05/30/23 21:57 Temperature Temperature Source Pulse Rate 76 Blood Pressure 93/52 L BP Systolic 93 BP Diastolic 52 Pulse Ox 97 05/30/23 22:00 05/30/23 22:00 05/30/23 22:00 Temperature Temperature Source Pulse Rate 74 Blood Pressure 101/57 L BP Systolic 101 BP Diastolic 57 Pulse Ox 98 05/30/23 22:00 05/30/23 22:05 05/30/23 22:05 Temperature Temperature Source Pulse Rate 67 72 Blood Pressure 95/54 L BP Systolic 95 BP Diastolic 54 Pulse Ox 05/30/23 22:05 05/30/23 22:10 05/30/23 22:10 Temperature Temperature Source Pulse Rate 79 Blood Pressure BP Systolic BP Diastolic Pulse Ox 97 97 05/30/23 22:12 05/30/23 22:12 05/30/23 22:15 Temperature Temperature Source Pulse Rate 82 75 Blood Pressure 102/52 L BP Systolic 102 BP Diastolic 52 Pulse Ox 05/30/23 22:15 05/30/23 22:17 05/30/23 22:17 Temperature Temperature Source Pulse Rate 73 Blood Pressure 89/54 L BP Systolic 89 BP Diastolic 54 Pulse Ox 96 05/30/23 22:20 05/30/23 22:20 05/30/23 22:21 Temperature Temperature Source Pulse Rate 75 Blood Pressure 93/54 L BP Systolic 93 BP Diastolic 54 Pulse Ox 96 05/30/23 22:21 05/30/23 22:25 05/30/23 22:25 Temperature Temperature Source Pulse Rate 75 72 Blood Pressure 92/50 L BP Systolic 92 BP Diastolic 50 Pulse Ox 05/30/23 22:25 05/30/23 22:30 05/30/23 22:30 Temperature Temperature Source Pulse Rate 80 Blood Pressure BP Systolic BP Diastolic Pulse Ox 97 97 05/30/23 22:30 05/30/23 22:30 05/30/23 22:35 Temperature Temperature Source Pulse Rate 86 81 Blood Pressure 91/51 L BP Systolic 91 BP Diastolic 51 Pulse Ox 05/30/23 22:35 05/30/23 22:37 05/30/23 22:37 Temperature Temperature Source Pulse Rate 69 Blood Pressure 92/53 L BP Systolic 92 BP Diastolic 53 Pulse Ox 96 Weight Weight: 180 lb Body Mass Index (BMI) 29.0 Physical Exam Const alert, oriented x3 and no apparent distress General Appearance: cooperative, comfortable and well kempt Orientation / Consciousness: awake and oriented to person Exam Limitations: no limitations HEENT normocephalic Neck full ROM Chest inspection of chest normal Resp normal respiratory effort, normal air movement and no retractions Effort and Inspection: able to speak in complete sentences and symmetric chest movement Cardio regular rate Peripheral Pulses: pulses 2+ throughout GI normal to inspection, nondistended, normoactive bowel sounds Inspection: gravid no CVA tenderness and appearance of the vagina normal External Female Exam: normal appearance of the urethra; Negative for external lesion OB / External & Speculum: external exam normal Manual OB Exam: estimated gestational size appropriate and presentation cephalic Uterus Palpation: Negative for uterus tender Extremity normal to inspection Skin no rashes or lesions noted Neuro deep tendon reflexes 2+ bilaterally and gait normal Motor Exam: strength 5/5 throughout and clonus absent Psych Activity / Motor Behavior: appropriate eye contact Speech: normal speech Labs Labs Labs: Blood Type A POSITIVE Antibody Screen NEGATIVE Hct 39.3 % (37-47) Hgb 13.6 g/dL (12.0-15.0) Obstetrics Ultrasound Syphilis Total Ab Non-reactive Rubella IgG Antibody Reactive (Nonreactive) Hep Bs Antigen Non-Reactive (Nonreactive) Hepatitis C Antibody Non-Reactive (Nonreactive) Chlamydia DNA (EMELY) Negative (Negative) N.gonorrhoeae DNA (EMELY) Negative (Negative) HIV 1&2 Antibody Non-Reactive (Nonreactive) Glucose 1 Hr 50 gm 89 mg/dL (70-140) Assessment & Plan (1) SROM (spontaneous rupture of membranes): COMMENT: since 937 clear fluids, afebrile (2) Spontaneous onset of labor: (3) Abnormal ultrasound: COMMENT: 2.7 mm solitary choroid plexus cyst NIPT LR (4) Supervision of normal : COMMENT: PRR RABIA 05/30/23 pelon Medrano (5) : QUALIFIERS: Weeks of gestation: 39 weeks Qualified Code(s): Z3A.39 - 39 weeks gestation of COMMENT: GBS negative, NIPT low risk carrier and afp declined. anatomy reviewed. PLAN: Plan Patient presents IAL, SROM plan expectant management for , pitocin PRN if needed. Pain management: epidural. now comfortable with placement. GBS negative Management of any complications: none I have reviewed the [facility] and made any clinically relevant updates. Dr. Long updated on admission, exam and poc. agrees with primary midwifery management, available as needed
[2023-05-31] VITALS (25 sets, daily range): BP systolic 91–149; BP diastolic 49–72; PULSE 64–106; RESP 16; TEMP 36.3–36.7; O2SAT 98
[2023-05-31] MEDS: Lactated Ringers 1,000 ML 200 ML IV ×2 (01:03→07:43)
[2023-05-31] MEDS: Amnioinfusion- 0.9% NS 1,000 ML IV.SOLN. 1000 ML INTRA-UTER (02:37)
[2023-05-31] MEDS: DiphenhydrAMINE 50 MG/ML Syringe IV (02:42)
[2023-05-31] MEDS: fentaNYL-bupivacaine (epidural) 100 ML BAG EPIDURAL (02:50)
[2023-05-31] MEDS: Oxytocin 15 Units/NS 250ml 15 UNITS/250 ML IV.SOLN 2 UNITS IV (04:20)
--- NOTE | 2023-05-31 06:25 | PN.OBGYN_ITS ---
Subjective Subjective comfortable with epidural. Objective Data Objective Data Vital Signs: Vital Signs Temp Pulse BP Pulse Ox 97.8 F 72 111/67 98 05/31/23 05:28 05/31/23 05:29 05/31/23 05:29 05/31/23 02:30 Weight: 180 lb Body Mass Index (BMI) 29.0 Intake & Output: Intake and Output for Last 24 Hours 05/29/23 05/30/23 05/31/23 23:59 23:59 23:59 Intake Total 500 / 500 816.67 / 816.67 Output Total 1750 / 1750 Balance 500 / 500 -933.33 / -933.33 Lab / Micro Data 05/30/23 19:45 Labs: Laboratory Results - last 24 hr 05/30/23 19:45: WBC 17.9 H, RBC 4.33, Hgb 13.6, Hct 39.3, MCV 90.8, MCH 31.4, MCHC 34.6, RDW Std Deviation 41.0, RDW Coeff of Eleazar 12.5, Plt Count 178, MPV 12.2 H, Immature Gran % (Auto) 0.700, Neut % (Auto) 85.6 H, Lymph % (Auto) 8.0 L , [place] % (Auto) 5.2, Eos % (Auto) 0.1, Baso % (Auto) 0.4, Absolute Neuts (auto) 15.4 H, Absolute Lymphs (auto) 1.43, Nucleated RBC % 0, Syphilis Total Ab Non- reactive, Blood Type A POSITIVE, Antibody Screen NEGATIVE NST FHR Rate Baby A Baseline: 120-130 Variability:: Moderate Accelerations:: 15 x 15 Decelerations:: Early and Late (x1) NST Reactive:: Yes FHR Category:: Category II Uterine Activity:: q2-4 Assessment & Plan (1) Spontaneous onset of labor: COMMENT: augmentation with pitocin. (2) SROM (spontaneous rupture of membranes): COMMENT: since 937 clear fluids, afebrile PLAN: s/p amnioinfusion for variable decelerations. (3) Supervision of normal : COMMENT: PRR RABIA 05/30/23 pelon Medrano (4) : QUALIFIERS: Weeks of gestation: 39 weeks Qualified Code(s): Z3A.39 - 39 weeks gestation of COMMENT: GBS negative, NIPT low risk carrier and afp declined. anatomy reviewed. PLAN: Plan -continue with cat 2 management, resolution with position changes. - cervical check around 6:30. cervical change from 5 to 5.5 at 2am.
--- NOTE | 2023-05-31 07:03 | PCM.PN.BLA ---
Progress Note patient is comfortable with epidural. She states that she did not get much sleep last night. nurse reports that just at 6:45 she was found to be 7.5 cm contractions have been coupling. patient consents to another exam now and possible head rotation current tracing: FHT: Moderate variability with intermittent late decelerations. Variable decelerations resolved with amnioinfusion. Chunky: coupling Contractions have also seemed to resolve with manual head rotation reviewed tracing abnormalities since last note: currently improved. A/P: SROM x 22 hours protracted labor and asynclitic head position. plan to continue close observation. We discussed if progresses to complete and a vacuum is needed that she would consent to that.
--- NOTE | 2023-05-31 07:41 | PN_ITS ---
Progress Note comfortable with epidural current tracing: FHT: 135 Moderate variability reactive occasional variable vs late deceleration category II tracing Diablo: 3-5 minute Contractions Membranes: ruptured at 0930 05/30/23 remains clear SVE: 7.5/90/0 A/P: Continue with position changes Titrate pitocin per protocol Epidural per anesthesia Anticipate Dr Arauz aware of plan, on unit and reviewed strip, and agrees with plan of care Assessment & Plan Assessment/Plan (1) Spontaneous onset of labor: (2) SROM (spontaneous rupture of membranes): (3) Abnormal ultrasound: (4) Supervision of normal : (5) : QUALIFIERS: Weeks of gestation: 39 weeks Qualified Code(s): Z3A.39 - 39 weeks gestation of Multi Select Codes Urinary/Genital Urinary/Genital CPT Codes: No Charge
[2023-05-31] MEDS: Amnioinfusion- 0.9% NS 1,000 ML IV.SOLN. INTRA-UTER (08:00)
[2023-05-31] MEDS: Oxytocin 15 Units/NS 250ml 15 UNITS/250 ML IV.SOLN 83 UNITS IV (09:02)
--- NOTE | 2023-05-31 09:17 | OP.PCM_ITS ---
Assessment & Plan (1) Spontaneous onset of labor: COMMENT: augmentation with pitocin. (2) SROM (spontaneous rupture of membranes): COMMENT: since 937 clear fluids, afebrile (3) Supervision of normal : COMMENT: PRR RABIA 05/30/23 pelon Medrano (4) : QUALIFIERS: Weeks of gestation: 39 weeks Qualified Code(s): Z3A.39 - 39 weeks gestation of COMMENT: GBS negative, NIPT low risk carrier and afp declined. anatomy reviewed. (5) Abnormal ultrasound: COMMENT: 2.7 mm solitary choroid plexus cyst NIPT LR Maternal Data Information RABIA Calculator Estimated Delivery Date Method Current WG Current Estimate 05/30/23 LMP (Certain) 40w 1d Other Estimates 05/31/23 Ultrasound #1 40w 0d Vaginal Delivery Operative Information Date of Procedure: 05/31/23 Pre-Operative Diagnosis: see a/p diagnoses Post-Operative Diagnosis: same Surgery / Procedure Performed: Vacuum Assisted Vaginal Delivery (2 pulls no pop offs) Type of Anesthesia: Epidural Special Medications: none Estimated Blood Loss: 200 Fluids Replaced: crystalloid Findings Description of Procedure: Patient began pushing and had a bradycardia into the 80s, therefore the decision was made to proceed with a VAVD. vacuum applied at +3 station and 2 pulls made with 2 ctx and no pop offs, and I delivered the head in the STEVE presentation. The head was delivered atraumatically . The infant was rotating and with garrett, the anterior and posterior shoulders delivered without complication followed by the rest of the infant and the was placed on the maternal abdomen. Delayed cord clamping was employed for approximately 60 seconds. Cord was clamped and cut and gentle traction was applied to the cord and the placenta delivered spontaneously immediately following it was noted to be intact with three-vessel cord. The perineum and vagina were inspected and noted to have a first degree perineal laceration which was repaired in the usual fashion with 3- 0 vicryl rapide. . EBL was 200 cc. Patient and tolerated delivery well. Amniotic Fluid Description: Clear Placental Delivery Description: Spontaneous Placenta Disposition: [facility] Cord Vessel Description: 3 Vessels Cord Entanglement: None Delayed Cord Clamping: Yes Post Vaginal Delivery Medications Given After Delivery: IV Pitocin Episiotomy Description: None Complication Complications: None Procedures Urinary/Genital [id number]: [id number] [facility]
--- NOTE | 2023-05-31 09:21 | DCINST_ITS ---
Discharge Instructions Diet Discharge Diet: No restrictions Activity Discharge Activity: Return to Normal Activity, May Not Drive (while taking narcotic pain medications.) and May Shower May resume sexual activity in: 4-6 weeks Dressing / Incision Call your doctor if your incision/area has: Continuous Slow Oozing, Sudden Increased Bleeding, Increased Pain/ Swelling, Increased Redness and Foul Smelling Discharge Follow Up Care Please Follow Up With: Lubna Arauz MD When: Call [phone] to make an appointment with your doctor in 6 weeks. If you had elevated blood pressure or 4th degree laceration, you will need to be seen in 2 weeks. Test Results: Test results from this visit will be discussed in further detail at your follow- up appointment, if applicable. Discharge Plan Admission Admit Date/Time: 05/30/23 19:40 Attending Provider: Lubna Arauz Primary Care Provider: Pieter Salguero Discharge Orders/Prescriptions Prescriptions: No Action DHA 200 mg capsule PO Referrals / Follow Up: Pieter Salguero MD [Primary Care Provider] - Disposition Disposition (needs filled in before D/C Order can be placed): Home, Self Care
[2023-05-31] MEDS: 0.9% Saline Lock 10 ML Syringe IV (12:40)
[2023-05-31] MEDS: Acetaminophen 500 MG Tablet 1000 MG PO (16:50)
[2023-05-31] MEDS: Ibuprofen 600 MG Tablet PO (21:15)
[2023-06-01] VITALS (8 sets, daily range): BP systolic 101–113; BP diastolic 59–65; PULSE 71–102; RESP 16; TEMP 36.3–36.8; O2SAT 97–99
[2023-06-01] MEDS: Acetaminophen 500 MG Tablet 1000 MG PO ×2 (00:02→10:27)
[2023-06-01] MEDS: Ibuprofen 600 MG Tablet PO (06:39)
--- NOTE | 2023-06-01 07:47 | PCM.PN.OB ---
Subjective Subjective Patient doing well without complaints. Tolerating PO. Ambulating and voiding without difficulty. Feeding well. Denies chest pain, shortness of breath, calf pain/swelling, fevers, chills, lightheadedness. Objective Data Objective Data Vital Signs: Vital Signs Temp Pulse Resp BP Pulse Ox O2 Del Method 98.2 F 71 16 102/59 L 99 Room Air 06/01/23 04:18 06/01/23 04:18 06/01/23 04:18 06/01/23 04:18 06/01/23 04:18 06/01/23 04:18 Oxygen Delivery Method Room Air Weight: 180 lb Body Mass Index (BMI) 29.0 Intake & Output: Intake and Output for Last 24 Hours 05/30/23 05/31/23 06/01/23 23:59 23:59 23:59 Intake Total 500 / 500 2508.46 / 2508.46 Output Total 4200 / 4200 Balance 500 / 500 -1691.54 / -1691.54 Lab / Micro Data 05/30/23 19:45 Physical Exam Const alert and oriented x3 HEENT normocephalic Eyes PERRL Neck full ROM Resp normal respiratory effort GI soft to palpation GI Narrative: FF below U Assessment & Plan (1) Vacuum extractor delivery, delivered: COMMENT: 05/31/23 JOSEFA TOLBERT PLAN: Plan s/p PPD # 1 1. routine post delivery care 2. breast feeding- support given 3. rh positive 4. rubella immune 5. home today
== END 2023-06-01 15:00 | disposition home or self-care (01) | DRG 807 ==
PROVIDERS: Registered Nurse; Admitting Provider Obstetrics & Gynecology; PCP Family Medicine; Visit Provider Obstetrics & Gynecology
DX: O76 Abnormality in fetal heart rate and rhythm complicating labor and delivery (principal); Z37.0 Single live birth; O35.03X0 Maternal care for (suspected) central nervous system malformation or damage in fetus, choroid plexus cysts, not applicable or unspecified; O42.92 Full-term premature rupture of membranes, unspecified as to length of time between rupture and onset of labor; O70.0 First degree perineal laceration during delivery; Z3A.40 40 weeks gestation of pregnancy
CPT/HCPCS: 59025; 59050; 85025; 86780; 86850; 86900; 86901; 99221; J7030; J7120; A4216; G0378

== ENCOUNTER 2023-11-25 19:59 | Emergency (ER) | payer OTHER, SELFPAY ==
[2023-11-25 20:01] VITALS: BP 109/70; PULSE 96; RESP 18; TEMP 36.6; O2SAT 96; BMI 22.6
--- NOTE | 2023-11-25 20:15 | CT_ITS ---
STUDY: CT ABDOMEN AND PELVIS WITH CONTRAST REASON FOR EXAM: Female, 28 years old. Diarrhea, abdominal pain RADIATION DOSAGE (If Supplied By Facility): CTDIvol = ( 13.46 ) mGy, DLP = ( 535.21 ) mGycm TECHNIQUE: Transaxial images were obtained from the dome of the diaphragm to the symphysis pubis without oral contrast. IV 75mL Isovue-370 was administered. Sagittal and coronal images were reconstructed. Individualized dose optimization techniques were used for this CT. COMPARISON: None. FINDINGS: The visualized lung bases are unremarkable. The visualized portions of the heart are within normal limits. Normal liver. Normal gallbladder and extrahepatic biliary system. Normal spleen. Normal pancreas. Normal bilateral adrenal glands. Normal right kidney. Normal left kidney. Normal visualized stomach. Normal small intestine. Wall thickening of the entire colon suggestive of colitis namely pseudomembranous colitis. No loculated fluid collection to suggest abscess. No pneumoperitoneum tissues perforation. The appendix is visualized and appears normal. Normal abdominal aorta. Normal inferior vena cava. Normal retroperitoneum. Normal urinary bladder. Normal abdominal wall. Normal osseous structures. CT/Abdomen/Pelvis W IV Cont ONLY IMPRESSION: Suspect colitis possibly pseudomembranous colitis. Clinical correlation is recommended. Electronically Signed: Raúl Parker MD at 21:51 EDT ,
--- NOTE | 2023-11-25 20:16 | EDS_ITS ---
HPI HPI - GI History of Present Illness Chief Complaint: Abd Pain Narrative Narrative: 28-year-old female who denies significant past medical history, is status post vaginal delivery by 6 months and is currently breast-feeding, presents with diarrhea and abdominal cramping that she has had over the last 3 days. She denies any fevers or chills. She states that her pain and cramping began more in the epigastric area, but is now in the bilateral lower quadrants. At times when her cramping becomes severe, she becomes nauseated, but that quickly resolves. She states that now whenever she tries to eat something, she will have yellow to mucousy stool. In the last 24 hours she has had a bowel movement 12 times with the last being perhaps blood-tinged. No exacerbating or alleviating factors to her cramping. She denies any previous abdominal surgeries. She has not thinks that she ate any spoiled food 3 days ago. She denies any vomiting. No dysuria or hematuria. PFSH PFS Medical History Dysmenorrhea Fatigue Pelvic pain Sinus infection Home Medications docosahexaenoic acid 200 mg capsule ( DHA) mg PO 01/12/22 [History Last Taken 05/30/23] azithromycin 500 mg tablet 500 mg PO DAILY 7 days #7 tabs 11/25/23 [Rx Last Taken Unknown] dicyclomine 20 mg tablet 20 mg PO TID #20 tabs 11/25/23 [Rx Last Taken Unknown] Allergy/AdvReac Type Severity Reaction Status Date / Time No Known Allergies Allergy Verified 11/25/23 20:01 Family History Aunt MTHFR gene mutation Grandfather Cancer Uncle Heart disease VSD repaired at 6months, revision at 18 years intellectual disability Unknown Heart disease tricuspid valve dysplasia Surgical History S/P tonsillectomy and adenoidectomy [place] teeth extracted Social History adopted: No household members: significant other housing: house current occupational status: employed current occupation: [employer] pets and animals: Yes pets and animals: cat(s) and dog(s) history of recent travel: Yes sexually active: Yes Smoking Status: Never smoker alcohol intake: never substance use type: does not use well-balanced diet: daily or most days caffeine: No seatbelt use: always do you feel safe at home: Yes additional social history: Mitchell FANG ROS ED ROS Narrative Constitutional: No fever, no chills. HEENT: No sore throat. No neck pain. No loss of vision. No rhinorrhea. Cardiovascular: No chest pain. No palpitations. No pedal edema. Respiratory: No cough, no shortness of breath. Abdominal: Positive bilateral lower quadrant, crampy abdominal pain. Intermittent nausea. No vomiting. Multiple episodes of diarrhea/yellow mucousy stool. Genitourinary: No dysuria. No hematuria. Musculoskeletal: No myalgias. No arthralgias. Neurologic: No headaches. No dizziness. No lightheadedness. Skin: No rash. No change in color. Psychiatric: No depression. No anxiety. EXAM Physical Exam Narrative Exam Narrative: Afebrile. Vital signs noted. HEENT: Normocephalic. Atraumatic. PERRL, EOMI. Neck soft and supple. No point tenderness or step off. Cardiovascular: Regular rate and rhythm. No murmurs, rubs, or gallops appreciated. Respiratory: No tachypnea. Lungs clear to auscultation bilaterally. Gastrointestinal: Abdomen soft, mild tenderness bilateral lower quadrants, left greater than right with normoactive bowel sounds. No rebound or guarding. No peritoneal signs. Neurological: Awake. Alert. Nonfocal, nonlateralizing. Skin: No rash. Normal color. No pallor. Musculoskeletal: No pedal edema. Full range of motion extremities. Const Vital Signs: 11/25/23 20:01 11/25/23 22:00 Temperature 97.8 F Temperature Source Temporal Pulse Rate 96 78 Respiratory Rate 18 18 Blood Pressure 109/70 105/72 Blood Pressure Mean 83 83 Pulse Ox 96 98 Oxygen Delivery Method Room Air Room Air MDM MDM MDM Narrative Medical decision making narrative: In the differential diagnosis is gastroenteritis/enteritis versus colitis versus diverticulitis versus appendicitis. I have low suspicion for bowel obstruction as she has not had previous surgeries. She will be given Bentyl intramuscular injection for analgesia. She will also be bolused normal saline. Will check a CBC, CMP, and lipase to help rule out any pancreatitis, but her pain is in the lower quadrants. Serum will also be obtained. Also in the differential would be ovarian pathology, however her pain is bilateral. I reviewed her laboratory work and she has normal white count of 6.1, hemoglobin normal at 13.4, hematocrit 40.7, platelet count normal at 160. Sodium is normal at 139, potassium normal at 3.9, chloride 106. Glucose is appropriately elevated at 92. She has a BUN of 11 and creatinine of 0.87, no evidence of dehydration. Urinalysis is negative for infection I do not feel antibiotics are indicated for this/cystitis. She does have 5 ketones which shows mild dehydration. I reviewed the CT of the abdomen and pelvis and reviewed the radiology report. It comments on wall thickening of the entire colon and the possibility of pseudomembranous colitis. However, with further history taking, the patient has not had antibiotics recently so I have lower suspicion for C. difficile. I did place an order for C. difficile study, but the patient is not having diarrhea in the emergency department. After Bentyl, she feels mildly improved. I discussed patient with Dr. Green with gastroenterology. Given her colitis on CT scan, it was not felt that she required admission but should take outpatient antibiotics. Azithromycin is preferred over Cipro and Flagyl as she is breast-feeding. She will also be placed on Bentyl as well. At this point in time, I feel she can be discharged safely home with follow-up to gastroenterology. Return instructions to the emergency department were reviewed. Disposition is discharged home in stable condition. History & Record Review Discussion w/independent historian: Patient Additional record(s) reviewed:: No prior records Lab Data Attestation: I reviewed the patient's lab results. Labs: Laboratory Results - last 24 hr 11/25/23 20:30 WBC 6.1 RBC 4.52 Hgb 13.4 Hct 40.7 MCV 90.0 MCH 29.6 MCHC 32.9 RDW Std Deviation 40.0 RDW Coeff of Eleazar 12.2 Plt Count 160 MPV 11.0 Immature Gran % (Auto) 0.300 Neut % (Auto) 74.0 H Lymph % (Auto) 16.2 L [place] % (Auto) 8.2 Eos % (Auto) 0.3 Baso % (Auto) 1.0 Absolute Neuts (auto) 4.5 Absolute Lymphs (auto) 0.99 Nucleated RBC % 0 Sodium 139 Potassium 3.9 Chloride 106 Carbon Dioxide 27.0 Anion Gap 6 BUN 11 Creatinine 0.87 Estim Creat Clear Calc 88.51 Est GFR (MDRD) Af Amer 98 Est GFR (MDRD) Non-Af 81 BUN/Creatinine Ratio 12.7 Glucose 92 Calcium 8.7 Total Bilirubin 0.40 AST 15 ALT 15 Alkaline Phosphatase 70 Total Protein 6.9 Albumin 3.7 Globulin 3.2 Albumin/Globulin Ratio 1.2 Lipase 36 Serum , Qual NEGATIVE Urine Color Yellow Urine Clarity Clear Urine pH 6.0 Ur Specific [place] 1.020 Urine Protein 15 H Urine Glucose (UA) Normal Urine Ketones 5 H Urine Occult Blood 10 H Urine Nitrite Negative Urine Bilirubin Negative Urine Urobilinogen Normal Ur Leukocyte Esterase 25 H Urine RBC 0 SEEN Urine WBC 0-5 SEEN Ur Squamous Epith Cells 0-5 SEEN Urine Bacteria 0 SEEN Urine Mucus 0 SEEN Radiography Diagnostic Testing: Clinical Impression(s) from Imaging Studies Abdomen/Pelvis CT 11/25/23 20:15 IMPRESSION: Suspect colitis possibly pseudomembranous colitis. Clinical correlation is recommended. Electronically Signed: Raúl Parker MD at 21:51 EDT , Discharge Plan Triage Chief Complaint: Abd Pain ED Provider: Javier Joshi Dx/Rx/DC Orders Clinical Impression: Colitis, Diarrhea, Abdominal pain Instructions: ED Understanding Colitis Prescriptions: New azithromycin 500 mg tablet 500 mg PO DAILY 7 Days Qty: 7 0RF dicyclomine 20 mg tablet 20 mg PO TID Qty: 20 0RF No Action DHA 200 mg capsule PO Primary Care Provider: Pieter Salguero Referrals: Pieter Salguero MD [Primary Care Provider] - Peter,DO Bernardo [Med Staff - Active Staff] - 1-2 Weeks Activity Restrictions/Additional Instructions: Medication as directed. If you are breast-feeding, you may still want to perform pump and dump. Follow-up with gastroenterology in the next 1 to 2 weeks if possible. Return with increased pain, fever, new or worsening symptoms. Disposition Disposition: Home, Self Care
[2023-11-25] MEDS: 0.9% Normal Saline (1000mL) 1,000 ML 1000 ML IV (20:26)
[2023-11-25] MEDS: Dicyclomine 20 MG/2 ML Vial IM (20:26)
[2023-11-25 20:38] LABS: Bacteria 0 SEEN /hpf (None Seen); Mucous, Urine 0 SEEN /hpf (<or=2+); Red Blood Cells-Urine 0 SEEN /hpf (0-5)
[2023-11-25 20:45] LABS: Color, Urine Yellow (Yellow); Glucose, Dipstick Normal (Normal); Ketone-Dipstick 5 mg/dl (Negative); Leukocyte Esterase-Dipstick 25 /ul (Negative); Nitrite-Dipstick Negative (Negative); Occult Blood-Urine 10 /ul (Negative); Protein-Dipstick 15 mg/dl (Negative); Urine Bilirubin Dipstick Negative (Negative); Urine Clarity Clear (Clear); Urine Urobilinogen Normal (Normal)
[2023-11-25 20:49] LABS: Absolute Lymphocyte Count 0.99 X10^3/uL (0.83-4.51); Absolute Neutrophil Count 4.5 X10^3/uL (2.0-7.7); Basophil# 0.06 X10^3/uL; Eosinophil# 0.02 X10^3/uL; Eosinophils% 0.3 % (0-5); Hematocrit 40.7 % (37-47); Hemoglobin 13.4 g/dL (12.0-15.0); Internal QC Validated? YES +Cl - CLEAR BKGD; Lymphocyte # 0.99 X10^3/ul (0.83-4.51); Lymphocyte % 16.2 % (19-41); Mean Corp Hgb Conc 32.9 g/dL (32-36); Mean Corpuscular Hgb 29.6 pg (27.0-32.0); Monocyte% 8.2 % (0-10); NRBC Flagged by Analyzer 0 % (0-5); Neutrophil # 4.52 X10^3/uL (2.7-7.7); Platelet Count 160 K/mm3 (150-450); Pregnancy, Serum, hCG Quali. NEGATIVE Negative; RBC Distribution Width CV 12.2 % (11.6-14.6); Red Blood Count 4.52 M/mm3 (4.2-5.4); White Blood Count 6.1 K/mm3 (4.4-11.0)
[2023-11-25 20:54] LABS: Squamous Epithelial Cells - UA 0-5 SEEN /hpf (5-10); White Blood Cells 0-5 SEEN /hpf (0-5)
[2023-11-25 20:56] LABS: ALB/GLOB Ratio 1.2 RATIO (0.9-2.4); AST(SGOT) 15 U/L (15-37); Alanine Aminotransfer ALT/SGPT 15 U/L (13-56); Albumin, Serum 3.7 g/dL (3.2-5.0); Alkaline Phosphatase 70 U/L (45-117); Anion Gap 6 (5-15); BUN 11 mg/dL (7-18); BUN/Creat Ratio 12.7 RATIO (10-20); Calcium,Total 8.7 mg/dL (8.5-10.1); Chloride 106 mmol/L (98-107); Creatinine, Serum 0.87 mg/dL (0.55-1.02); EST Glomerular Filtration Rate 81 mL/min (>60); Est Glom Filt Rate - Afr Amer 98 mL/min (>60); Estimated Creatinine Clearance 88.51 ml/min; Globulin 3.2 g/dL (2.2-4.2); Glucose 92 mg/dL (74-106); Lipase 36 U/L (13-75); Potassium 3.9 mmol/L (3.5-5.1); Protein, Total 6.9 g/dL (6.4-8.2); Sodium Level 139 mmol/L (136-145)
[2023-11-25 22:00] VITALS: BP 105/72; PULSE 78; RESP 18; O2SAT 98
[2023-11-25 23:18] VITALS: BP 105/65; PULSE 67; RESP 18; TEMP 36.8; O2SAT 97
== END 2023-11-25 23:19 | disposition home or self-care (01) ==
PROVIDERS: Emergency Provider Emergency Medicine; PCP Family Medicine; Visit Provider Emergency Medicine
DX: K52.9 Noninfective gastroenteritis and colitis, unspecified (principal)
CPT/HCPCS: 74177; 80053; 81001; 83690; 84703; 85025; 87493; 96360; 96361; 96372; 99282; Q9967